=== PATIENT | female | born 1980 | race Caucasian/White ===

== ENCOUNTER 2016-09-13 15:15 | Inpatient (IN) | payer OTHER ==
--- NOTE | 2016-09-13 16:30 | OBPROG ---
OBG Progress Note Assessment/Plan: Assessment: /-2 soft mid cephalic cat 1 fhr no contractions speculum exam to check on possible ROM amnisure sent negative nitrazine negative ferning negative pooling consulted dr. gonzales on poc Plan:pitocin per protocol 09/13/16 16:30 Subjective: Discussed ripening agents. Discussed low dose pitocin. Patient states allergic to latex. Speculum exam amnisure, nitrazine negative,pooling negative, perineum drying Exam /-1 able to feel bag of water with exam. Attempt to place the cook catheter difficulty with placement. Cervix to 2 quickly [address] cook catheter. Explained cervical stimulation: with stimulation cervix quickly to 3 cms. Discussed changing the plan to protocol dosed pitocin. Instead of low dose pitocin. With change in plan seemed upset. Attempt to discuss again POC. Previously patient haddeclined gbs treatment. Today also chooses to decline GBS positive treatment. Call to Dr. Leola Gonzales to discuss POC in agreement with POC. - SVE Dilation (cm): 3 Effacement (%): 100 Station: -2 FHR (bpm): 135 Membranes: Intact ICD10 Worksheet Patient Problems: Problems Problem Status Onset oligohydramnios at term Acute
[2016-09-13] MEDS ORDERED: OLIVE OIL 118 ML BTL MISC PRN (16:34)
[2016-09-13] MEDS ORDERED: OXYTOCIN/RINGERS LACTATE 1,000 ML IV PRN (16:34)
[2016-09-13] MEDS ORDERED: LIDOCAINE 1% 30 ML SDV SC PRN (16:34)
[2016-09-13] MEDS ORDERED: EPSOM SALT 454 GM TP PRN (16:34)
[2016-09-13] MEDS ORDERED: TERBUTALINE SULFATE 1 MG/ML VIAL IV PRN (16:34)
--- NOTE | 2016-09-13 16:40 | SOAPPROG ---
SOAP Progress Note Assessment/Plan: Assessment: /-2 soft mid cephalic cat 1 fhr no contractions speculum exam to check on possible ROM amnisure sent negative nitrazine negative ferning negative pooling consulted dr. meneses on poc Plan:pitocin per protocol 09/13/16 16:30 Subjective: Multiple times in the office GBS protocol discussed with patient and family. R/B /A/ discussed protocol in the hospital for babies not treated for GBS verbalized understanding of all of this. Nurse discussed protocol again today patient and family continue to decline antibiotics for GBS coverage ICD10 Worksheet Patient Problems: Problems Problem Status Onset oligohydramnios at term Acute
[2016-09-13] MEDS ORDERED: OXYTOCIN/RINGERS LACTATE 500 ML IV SCH (17:00)
[2016-09-13 18:29] LABS: % IMMATURE GRANULYOCYTES 0.8 % (0.0-1.1); ADD DIFF? NO; ADD MORPH? NO; ADD SCAN? NO; ATYPICAL LYMPHOCYTE FLAG 10 (0-99); FRAGMENT RBC FLAG 0 (0-99); HEMATOCRIT 37.5 % (38.0-47.0); HEMOGLOBIN 13.5 g/dL (12.6-16.3); LEFT SHIFT FLG 0 (0-99); LIPEMIA HEMOLYSIS FLAG 90 (0-99); MEAN CELL HEMOGLOBIN 31.5 pg (27.9-34.1); MEAN CELL VOLUME 87.6 fL (81.5-99.8); MEAN PLATELET VOLUME 10.5 fL (8.7-11.7); PLATELET CLUMPS FLAG 0 (0-99); PLATELET COUNT 229 10^3/uL (150-400); RED BLOOD CELL COUNT 4.28 10^6/uL (4.18-5.33); RED CELL DISTRIBUTION WIDTH 12.4 % (11.5-15.2)
--- NOTE | 2016-09-13 19:01 | GHP ---
[f rep st] HISTORY AND PHYSICAL DATE OF ADMISSION: 09/13/2016 HISTORY OF PRESENT ILLNESS: Patient comes into Labor and Deliver after being seen in the office for a repeat EVELYN. Previous EVELYN by ultrasound was 9.7. On today's ultrasound, EVELYN was 3. Dr. Leola Gonzales discussed induction of labor with the patient as well as doing NST. Family and patient unsure of POC when in the office. Called the patient to discuss induction of labor for oligo. Patient stated that coming in for induction of labor sounded like the best plan of care. Patient is a 2, A1, living 0, 35-year-old with an EDC of 09/28 with a gestational age of 37 and 6/7 weeks. 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 MEDICAL HISTORY: Patient is Rh negative. The patient is AMA. 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 GYNECOLOGICAL HISTORY: Jovana use. Abnormal Pap smear 10-12 years ago. Previous positive HPV. Other medical history: Patient has a borderline thyroid , history of depression in her teens. SURGICAL HISTORY: Previous wisdom teeth extraction. LABORATORY DATA: Patient is O negative, antibody negative. RPR is nonreactive. Rubella is immune. Hepatitis is negative. HIV is negative. Trio screen in 2014 was negative. [employer] panel was positive for Gaucher. Gonorrhea and chlamydia are negative. AFP was negative. Verifi was negative. 1-hour GTT was within normal limits. Patient was GBS positive. PHYSICAL EXAMINATION: GENERAL: Patient was awake, alert, oriented x3. LUNGS: Clear bilaterally. ABDOMEN: Bowel sounds were positive in all 4 quadrants. Abdomen was soft on palpation. NEUROLOGIC: DTRs were 1+ bilaterally. Negative clonus and negative Homans sign bilaterally. Admit to Labor and delivery. Discussion about possible rupture of membranes. Speculum exam was done, negative for ferning, negative for pooling, negative for Nitrazine. AmniSure was sent. This time I have no results for the AmniSure. Exam: An attempt to place Cook catheter. Patient initially was 1 cm , 100% effaced, -2 station and cephalic. With attempted placement, quickly went to 2 cm. [address] Cook catheter because of mobile cervix. With cervical stimulation, was able to get the patient to 3 cm. Change in plan of care for Pitocin to assist with induction of labor. Collaboration in consultation with Dr. Leola Gonzales revealed agreement with plan of care. Several times it has been discussed with patient GBS status is positive. At this time, even though with multiple discussions of risks, benefits, and alternatives, patient and family declined treatment for GBS. PLAN: Begin Pitocin per protocol. Patient's request is to begin at 1 mu. The patient has also requested dealer sales manager for delivery. /[id number]/MODL MTDD
[2016-09-13] MEDS: LR 1,000 ML IV PRN (19:40)
--- NOTE | 2016-09-13 23:59 | OBPROG ---
OBG Progress Note Assessment/Plan: Assessment: /- soft mid cephalic cat 1 fhr irregular con tractions resting no pain pitocin at 14 mu patien t has wanted from the beginning of the pitocin to run the pitocin at her rate. With patiejt resting able to run the pitocin to try and get contractions regular in timing Plan:pitocin per protocol 09/13/16 16:30 09/13/16 23:56 Subjective: Resting Objective: 09/13/16 18:20 Patient ABO/Rh O NEGATIVE 09/13/16 18:20 Current Contraction Pattern: Irregular FHR Pattern Variability: Moderate FHR Category: 1 Membranes: Intact ICD10 Worksheet Patient Problems: Problems Problem Status Onset oligohydramnios at term Acute
--- NOTE | 2016-09-14 01:15 | OBPROG ---
OBG Progress Note Assessment/Plan: Assessment: 2-3/80/-1 soft anterior cephalic cat 1 fhr regular contractions resting no pain pitocin at 14 mu patient comfortable denies pain discussed poc rom at this time declines attempt again to R?B?A to pitocin attempt to discuss antibiotics for GBS they are discussing how they would like to proceed Plan:pitocin per protocol 09/13/16 16:30 09/13/16 23:56 09/14/16 01:16 Subjective: Talked to patient and family about need to n ow rom to allow labor to progress. Declined rom. Did not want to risk GBS sepsis with with the baby. Explained how pitocin works. Discussed its risk at higher doses. Discussed how pitocin tends to assist with furthering labor if you assist with rom. PAtient states I have n ot been in labor that long. I discussed with patient that she is not in labor and thats why assisting with rom is helpful. I also reiterated we can begin antibiotics now to assist in covering the gbs patient and family are thinking about POC recommendations again Objective: 09/13/16 18:20 Patient ABO/Rh O NEGATIVE 09/13/16 18:20 - SVE Dilation (cm): 2 Effacement (%): 90 Station: -1 Current Contraction Pattern: Regular FHR (bpm): 125 FHR Pattern Variability: Moderate FHR Category: 1 Membranes: Intact ICD10 Worksheet Patient Problems: Problems Problem Status Onset oligohydramnios at term Acute
[2016-09-14] MEDS ORDERED: AMPICILLIN SODIUM 2 GM in NS 100 ML IV ONE (02:11)
--- NOTE | 2016-09-14 02:17 | OBPROG ---
OBG Progress Note Assessment/Plan: Assessment: 2-3/80/-1 soft anterior cephalic cat 1 fhr regular contractions resting no pain pitocin at 18 mu patient comfortable. feeling occasional contractions nothing regular. begin antibiotics for gbs coverage. allow for rest x 2 hours. Arom after 2h-3h Plan:pitocin per protocol 09/13/16 16:30 09/13/16 23:56 09/14/16 01:16 09/14/16 02:15 Subjective: Continued to try to talk to patient about POC. Patient and family have agreed to start antibiotics for coverage of gbs. Will not rupture membranes for 2 hours. Will then ruptures membranes hoping to be able to decrease the pitocin as patients body begins to encourage labor on its own . Family and patient ok with POC Objective: 09/13/16 18:20 Patient ABO/Rh O NEGATIVE 09/13/16 18:20 Current Contraction Pattern: Regular, Irregular FHR (bpm): 125 FHR Pattern Variability: Moderate FHR Category: 1 Membranes: Intact ICD10 Worksheet Patient Problems: Problems Problem Status Onset oligohydramnios at term Acute
[2016-09-14] MEDS ORDERED: OLIVE OIL 118 ML BTL ONE (04:01)
[2016-09-14] MEDS ORDERED: TERBUTALINE SULFATE 1 MG/ML VIAL ONE (04:01)
[2016-09-14] MEDS ORDERED: LIDOCAINE 1% 30 ML SDV ONE (04:01)
[2016-09-14] MEDS ORDERED: MISOPROSTOL 200 MCG TAB ONE (04:02)
[2016-09-14] MEDS ORDERED: OXYTOCIN 10 UNIT/ML VIAL ONE (04:02)
[2016-09-14] MEDS: LR 1,000 ML IV PRN (04:26)
--- NOTE | 2016-09-14 05:06 | OBPROG ---
OBG Progress Note Assessment/Plan: Assessment: /0 soft anterior cephalic cat 1 fhr arom clear fluid regular contractions feeling greater pain with the contractions pitocin at 9 mu Plan:pitocin per protocol, antibiotic for gbs 09/13/16 16:30 09/13/16 23:56 09/14/16 01:16 09/14/16 02:15 09/14/16 05:02 Subjective: Feeling greater pain with the contractions Objective: 09/13/16 18:20 Patient ABO/Rh O NEGATIVE 09/13/16 18:20 - SVE Dilation (cm): 2 Effacement (%): 100 Station: 0 Current Contraction Pattern: Regular FHR (bpm): 130 FHR Pattern Variability: Moderate FHR Category: 2 Membranes: AROM Amniotic Fluid Color: Blood Tinged ICD10 Worksheet Patient Problems: Problems Problem Status Onset oligohydramnios at term Acute
[2016-09-14] MEDS: AMPICILLIN SODIUM 1 GM in NS 100 ML IV SCH ×4 (06:09→19:06)
[2016-09-14] MEDS ORDERED: fentaNYL 2MCG/ML/BUP 0.1% RTU 100 ML BAG EP ONE (06:29)
[2016-09-14] MEDS ORDERED: PHENYLEPHRINE HCL 100 MCG/ML SYR ONE (06:29)
[2016-09-14] MEDS ORDERED: BUPIVACAINE 0.25% 30 ML SDV ONE (06:29)
[2016-09-14] MEDS ORDERED: fentaNYL 100 MCG/2 ML INJ ONE (06:30)
[2016-09-14] MEDS ORDERED: LIDO/EPI 2% **for epidural** 20 ML SDV ONE (07:17)
[2016-09-14] MEDS ORDERED: ONDANSETRON 4 MG/2 ML VIAL IVP PRN (07:30)
[2016-09-14] MEDS ORDERED: fentaNYL 2MCG/ML/BUP 0.1% RTU 100 ML EP SCH (07:30)
[2016-09-14] MEDS ORDERED: LR 500 ML IV SCH (07:30)
[2016-09-14] MEDS ORDERED: PHENYLEPHRINE HCL 100 MCG/ML SYR IVP PRN (07:30)
[2016-09-14] MEDS ORDERED: NALOXONE HCL 0.4 MG/ML INJ IVP PRN (07:30)
--- NOTE | 2016-09-14 09:16 | OBPROG ---
OBG Progress Note Assessment/Plan: Assessment: Plan: Subjective: late entry patient received an epidural and was still feeling pressure. SVE 9-10.100/+1. patient will labor down so she can rest and then begin pushing. status reassuring. Objective: 09/13/16 18:20 Patient ABO/Rh O NEGATIVE 09/13/16 18:20 - SVE Dilation (cm): 10 Effacement (%): 100 Station: +1 Current Contraction Pattern: Regular FHR Pattern Variability: Moderate FHR Category: 1 Membranes: SROM Amniotic Fluid Color: Clear ICD10 Worksheet Patient Problems: Problems Problem Status Onset oligohydramnios at term Acute
[2016-09-14] MEDS: IBUPROFEN 600 MG TAB PO PRN ×3 (10:46→23:03)
[2016-09-14] MEDS ORDERED: ACETAMINOPHEN 325 MG TAB PO PRN (11:20)
[2016-09-14] MEDS ORDERED: DOCUSATE SODIUM 100 MG CAP PO PRN (11:20)
[2016-09-14] MEDS ORDERED: HYDROCODONE/APAP 5/325 TAB PO PRN (11:20)
[2016-09-14] MEDS ORDERED: HYDROCORTISONE 0.5% CREAM TP PRN (11:20)
--- NOTE | 2016-09-14 11:24 | OBPROC ---
- Labor and Delivery Onset of Contractions Date: 09/13/16 Onset of Contractions Type: Augmented Rupture of Membranes Date: 09/13/16 Rupture of Membranes Time: 04:20 Rupture of Membranes Type: Artificial Amniotic Fluid Color: Clear Delivery Type: Spontaneous Placenta Delivery Date: 09/14/16 Placenta Delivery Time: 10:15 Episiotomy/Laceration: 2nd Degree Repair: 3-0 EBL: 200 Complications: None - Medications Labor Augmentation/Induction Meds Used: Pitocin Labor Augmentation/Induction Indication: Other (Specify) (Oligo) Anesthesia: Epidural - [place] Info A Delivery Date: 09/14/16 Delivery Time: 10:09 Sex of : Female Score (1 Min): 8 Score (5 Min): 10
[2016-09-14 16:14] VITALS: RESP 16
[2016-09-15] MEDS: IBUPROFEN 600 MG TAB PO PRN ×4 (05:02→23:02)
--- NOTE | 2016-09-15 08:50 | SOAPPROG ---
SOAP Progress Note Assessment/Plan: Assessment: well pain well managed resting well voiding without difficulty ff@u scant rubra lochia perineum well approximated Planpp day 1 09/13/16 16:30 09/13/16 23:56 09/14/16 01:16 09/14/16 02:15 09/14/16 05:02 09/15/16 08:48 Subjective: Doing well. Denies difficultys Objective: Vital Signs Temp Pulse Resp BP Pulse Ox 36.9 C 70 16 99/58 L 96 09/14/16 22:10 09/14/16 22:10 09/14/16 22:10 09/14/16 22:10 09/14/16 22:10 Laboratory Results 09/13/16 18:20 09/14/16 09/15/16 09/16/16 05:59 05:59 05:59 Output Total 200 Balance -200 Physical Exam - Physical Exam General Appearance: WD/WN, alert, no apparent distress Cardiac/Chest: regular rate, rhythm Abdomen: other (ff@u) Pelvic Exam: vaginal bleeding (scant rubra lochia) Skin: normal color, warm/dry Extremities: normal range of motion, Ino's sign (negative bilaterally) Neuro/Psych: no motor/sensory deficits, alert, normal mood/affect, oriented x 3 ICD10 Worksheet Patient Problems: Problems Problem Status Onset oligohydramnios at term Acute
[2016-09-15 19:29] VITALS: TEMP 98.3
[2016-09-16] MEDS: IBUPROFEN 600 MG TAB PO PRN ×2 (06:20→12:24)
[2016-09-16 08:49] VITALS: BP 100/71; PULSE 52; O2SAT 94
--- NOTE | 2016-09-16 10:23 | SOAPPROG ---
SOAP Progress Note Assessment/Plan: Assessment: ppd# 2 s/p breast feeding uncomplicated post course mood stable Plan: routine post care and discharge instructions 09/16/16 10:21 Subjective: patient is doing great! pain is well controlled. normal lochia. breast feeding is going well. mood stable. ambulating. had a bowel movement. denies headache and changes in vision. ready to go home. Objective: Vital Signs Temp Pulse Resp BP Pulse Ox 36.8 C 52 L 16 100/71 94 09/16/16 08:00 09/16/16 08:00 09/16/16 08:00 09/16/16 08:00 09/16/16 08:00 Laboratory Results 09/13/16 18:20 09/15/16 09/16/16 09/17/16 05:59 05:59 05:59 Output Total 200 Balance -200 Physical Exam - Physical Exam General Appearance: WD/WN, alert, no apparent distress Respiratory: chest non-tender, lungs clear, normal breath sounds Cardiac/Chest: normal peripheral pulses, regular rate, rhythm Abdomen: normal bowel sounds, non-tender, soft, other (fundus firm and non tender) Skin: normal color, warm/dry Extremities: normal range of motion, non-tender, normal inspection, normal capillary refill Neuro/Psych: no motor/sensory deficits, alert, normal mood/affect, oriented x 3 ICD10 Worksheet Patient Problems: Problems Problem Status Onset oligohydramnios at term Acute
== END 2016-09-16 12:55 | disposition home or self-care (01) | DRG 775 ==
LOC: FLD 15:15 → FOB 09-14 13:26
PROVIDERS: ADMIT Advanced Practice Midwife; ATTEND Obstetrics & Gynecology
PROC: 0KQM0ZZ Repair Perineum Muscle, Open Approach (ICD-10-PCS; principal; 2016-09-14)
PROC: 3E033VJ Introduction of Other Hormone into Peripheral Vein, Percutaneous Approach (ICD-10-PCS; principal; 2016-09-14)
PROC: 10E0XZZ Delivery of Products of Conception, External Approach (ICD-10-PCS; principal; 2016-09-14)
DX: O41.03X0 Oligohydramnios, third trimester, not applicable or unspecified (principal); O70.1 Second degree perineal laceration during delivery; O99.820 Streptococcus B carrier state complicating pregnancy; Z3A.37 37 weeks gestation of pregnancy; Z37.0 Single live birth
CPT/HCPCS: J0290; J2370; J2590; J3010; J3105